=== PATIENT | male | born 1955 | race Caucasian/White ===

== ENCOUNTER → 2022-07-12 | Outpatient (CLI) | payer OTHER ==
--- NOTE | 2022-07-12 13:25 | XR ---
EXAMINATION TYPE: XR pelvis AP view DATE OF EXAM: 07/12/2022 CLINICAL HISTORY: Pain. TECHNIQUE: A single AP view of the pelvis is obtained. COMPARISON: None. FINDINGS: There is no acute fracture/dislocation evident in the pelvis. There is moderate axial join t space loss with severe acetabular spurring and subchondral cystic change in both hips. There is mod erate head neck collar spurring in the proximal right femur. Pubic symphysis is intact. Sacroiliac alexsandra ints show some narrowing and sclerosis bilaterally. The overlying soft tissue appears unremarkable. IMPRESSION: As above.
--- NOTE | 2022-07-12 13:40 | XR ---
EXAMINATION TYPE: XR spine complete AP and Lat DATE OF EXAM: 07/12/2022 COMPARISON: NONE HISTORY: Cervicalgia, mid back pain, and lumbar ago. TECHNIQUE: 2 views of the entire spine. Open-mouth view and oblique images cervical spine. Swimmer's lateral view of the cervicothoracic junction. FINDINGS: Suboptimal evaluation of the lower cervical spine due to osseous overlap on attempted swimm er's view. Suboptimal evaluation of the C1-C2 articulation on open-mouth frontal view due to overlyin g maxilla. Visualized cervical spine shows severe anterior and lateral spurring. Vertebral body heigh ts and disc space heights are fairly well preserved to the superior C7 level. Overlying soft tissue i s unremarkable. Oblique images show multilevel neural foraminal narrowing due to marginal spurring. Thoracic spine shows moderate to severe multilevel anterior and lateral spurring. Vertebral body heig hts and disc space heights are maintained. There are 5 lumbar-type vertebra. There is grade 1 retrolisthesis L1 on L2, L2 on L3, L3 on L4, and L 4 on L5. There is ozax-dg-[id number] multilevel disc space narrowing. Vertebral body heights are mainta ined. Moderate to severe multilevel anterior and lateral spurring is present. Overlying soft tissues are unremarkable. IMPRESSION: As above.
== END | disposition home or self-care (01) ==
LOC: RADXRMAIN 12:45
DX: M43.16 Spondylolisthesis, lumbar region (principal); M51.36 Other intervertebral disc degeneration, lumbar region; M54.2 Cervicalgia
CPT/HCPCS: 72082; 72170